=== PATIENT | male | born 1975 | race American Indian/Alaskan Native ===

== ENCOUNTER 2021-07-26 21:43 | Observation (INO) | payer OTHER ==
--- NOTE | 2021-07-26 22:01 | Emergency Department Report ---
HPI - General Chief Complaint: Overdose Time Seen by Provider: 07/26/21 21:52 - HPI HPI: Room 1 The patient is a 46-year-old male present with a chief complaint of heroin ingestion. The patient is brought in police custody for medical clearance after he reportedly ingested 47 bags of heroin at approximately 18: 00. The patient states that heroin was in plastic bags. Patient answers questions appropriately but seems slightly fatigued. ED Past Medical Hx - Past Medical History Previous Medical History?: No - Surgical History Past Surgical History?: No - Family History Family history: no significant - Social History Smoking Status: Current Every Day Smoker Substance Use Type: None ED Review of Systems ROS: Stated complaint: SWALLOWED HERION Other details as noted in HPI Constitutional: other (Sleepy) Eyes: denies: eye pain ENT: denies: throat pain Respiratory: no symptoms reported Cardiovascular: denies: chest pain Endocrine: no symptoms reported Gastrointestinal: denies: abdominal pain Genitourinary: denies: dysuria Musculoskeletal: denies: back pain Neurological: denies: headache Physical Exam - Physical Exam Vital Signs: Vital Signs 07/26/21 07/26/21 07/26/21 21:47 21:56 21:57 Temperature 98.4 F Pulse Rate 93 H Respiratory 18 Rate Blood Pressure 146/95 [Left] O2 Sat by Pulse 98 Oximetry Physical Exam: GENERAL: The patient is well-developed well-nourished male lying on stretcher appearing slightly fatigued but conscious and answering questions appropriately. [] HEENT: Normocephalic. Atraumatic. Extraocular motions are intact. Patient has moist mucous membranes. NECK: Supple. Trachea midline CHEST/LUNGS: Clear to auscultation. There is no respiratory distress noted. HEART/CARDIOVASCULAR: Regular. There is no tachycardia. There is no gallop rub or murmur. ABDOMEN: Abdomen is soft, nontender. Patient has normal bowel sounds. There is no abdominal distention. SKIN: There is no rash. There is no edema. There is no diaphoresis. NEURO: The patient is awake but seems slightly sleepy. The patient is awake and oriented. The patient is cooperative. The patient has no focal neurologic deficits. The patient has normal speech. GCS 15 MUSCULOSKELETAL: There is no evidence of acute injury. ED Course Vital Signs 07/26/21 07/26/21 07/26/21 21:47 21:56 21:57 Temperature 98.4 F Pulse Rate 93 H Respiratory 18 Rate Blood Pressure 146/95 [Left] O2 Sat by Pulse 98 Oximetry - Reevaluation(s) Reevaluation #1: 07/26/21 23:28 Patient groggy but answers questions after awakening to tactile stimuli. We will continue to observe Reevaluation #2: 07/27/21 00:05 Patient groggy but awakens to verbal stimuli only. Patient nods his head and says "yes" when asked if he is feeling okay. - Consultations Consultation #1: 07/26/21 22:01 Poison control called 07/26/21 22:15 Case discussed with Marii of poison control-recommends admitting the patient for 24 hours. Should give charcoal with sorbitol 1 g/kg as initial dose then 60 g of called charcoal and water every 4 to 6 hours for 24 hours. States the patient should pass at least 2 stools with charcoal before considering discharge. States that patient requires Narcan more than once the patient should be placed on a Narcan drip. States patient should be kept at least 6 hours after the last dose of Narcan if he remains asymptomatic. Patient should be admitted to the ICU ED Medical Decision Making - Lab Data Result diagrams: 07/26/21 23:06 07/26/21 23:06 - EKG Data -: EKG Interpreted by Me EKG shows normal: sinus rhythm Rate: normal - EKG Data When compared to previous EKG there are: previous EKG unavailable Interpretation: nonspecific ST-T wave licha - Radiology Data Radiology results: report reviewed (Abdominal x-ray 1 view), image reviewed (Abdominal x-ray 1 view) interpreted by me: Abdominal x-ray 1 view-no radiopaque foreign bodies visualized. Nonspecific bowel gas pattern [facility] [address] [place] [address] XRay Report Signed Patient: REECE AGUAYO MR#: [id number] : 1975 Acct:[id number] Age/Sex: 46 / M ADM Date: 07/26/21 Loc: ED Attending Dr: Ordering Physician: REMY OLMOS MD Date of Service: 07/26/21 Procedure(s): XR abdomen 1V ap Accession Number(s): [id number] cc: REMY OLMOS MD Fluoro Time In Minutes: . ABDOMEN 1 VIEW(S) INDICATION / CLINICAL INFORMATION: Reportedly ingested 47 bags of heroin. COMPARISON: None available. FINDINGS: T UBES / LINES: None. BOWEL GAS PATTERN: No dilated loops of bowel. No radiodense foreign bodies. There is mild constipation. FREE AIR / EXTRALUMINAL GAS: None seen. ADDITIONAL FINDINGS: No significant additional findings. IMPRESSION: 1. Constipation. Signer Name: Javi Garza MD Signed: 07/26/2021 10:37 PM Workstation Name: [id number] Transcribed By: XAVI Dictated By: Javi Garza MD Electronically Authenticated By: Javi Garza MD Signed Date/Time: 07/26/212236 DD/ 34 TD/TT: Print Cancel - Differential Diagnosis Possible heroin overdose Critical Care Time: Yes Critical care time in (mins) excluding proc time.: 30 Critical care attestation.: If time is entered above; I have spent that time in minutes in the direct care of this critically ill patient, excluding procedure time. ED Disposition Clinical Impression: Heroin overdose Disposition: 09 ADMITTED INPATIENT Is pt being admited?: Yes Does the pt Need Aspirin: No Condition: Serious Referrals: PRIMARY CARE, [Primary Care Provider] - 3-5 Days Time of Disposition: 00:06 (Hospitalist called (Dr Umana))
[2021-07-26] MEDS ORDERED: CHARCOAL/SORBITOL SOLUTION 25 GM/120 ML PO ONE (22:05)
[2021-07-26] MEDS ORDERED: ONDANSETRON 4 MG/2 ML INJ IV ONE (22:05)
--- NOTE | 2021-07-26 22:41 | XRay Report ---
. ABDOMEN 1 VIEW(S) INDICATION / CLINICAL INFORMATION: Reportedly ingested 47 bags of heroin. COMPARISON: None available. FINDINGS: TUBES / LINES: None. BOWEL GAS PATTERN: No dilated loops of bowel. No radiodense foreign bodies. There is mild constipatio n. FREE AIR / EXTRALUMINAL GAS: None seen. ADDITIONAL FINDINGS: No significant additional findings. IMPRESSION: 1. Constipation. Signer Name: Javi Garza MD Signed: 07/26/2021 10:37 PM Workstation Name: [email or web address]
[2021-07-26 23:23] LABS: Basophils # (Auto) 0.1 K/mm3 (0.0-0.1); Basophils % (Auto) 0.9 % (0.0-1.8); Eosinophils # (Auto) 0.1 K/mm3 (0.0-0.4); Eosinophils % (Auto) 0.8 % (0.0-4.3); Hematocrit 44.4 % (35.5-45.6); Hemoglobin 14.6 gm/dl (11.8-15.2); Lymphocytes # (Auto) 1.5 K/mm3 (1.2-5.4); Lymphocytes % (Auto) 19.9 % (13.4-35.0); Mean Corpuscular HGB Conc 33 % (32-34); Mean Corpuscular Volume 94 fl (84-94); Monocytes # (Auto) 0.5 K/mm3 (0.0-0.8); Monocytes % (Auto) 6.9 % (0.0-7.3); Platelet Count 263 K/mm3 (140-440); Red Blood Count 4.75 M/mm3 (3.65-5.03); Red Cell Distribution Width 14.2 % (13.2-15.2)
[2021-07-26 23:49] LABS: Alanine Aminotransferase 73 units/L (7-56); Albumin 4.8 g/dL (3.9-5); BUN/Creatinine Ratio 12; Blood Urea Nitrogen 16 mg/dL (9-20); Calcium 10.3 mg/dL (8.4-10.2); Hemolysis Index 31
[2021-07-27] MEDS ORDERED: MORPHINE 2 MG/1 ML INJ IV PRN ×2 (00:26)
[2021-07-27] MEDS ORDERED: MAGNESIUM HYDROXIDE (MOM) ORAL LIQD UDC PO PRN (00:26)
[2021-07-27] MEDS ORDERED: ACETAMINOPHEN 325 MG TAB PO PRN (00:26)
[2021-07-27] MEDS ORDERED: ONDANSETRON 4 MG/2 ML INJ IV PRN (00:26)
[2021-07-27] MEDS ORDERED: SODIUM CHLORIDE 0.9% 1000 ML 1,000 ML IV SCH (00:30)
--- NOTE | 2021-07-27 00:37 | History and Physical Report ---
History of Present Illness Date of examination: 07/27/21 Date of admission: 07/27/2021 Chief complaint: Heroin ingestion History of present illness: 46-year-old -Surinamese male with no significant past medical history brought into the emergency room today while in police custody having ingested about 47 bags of heroin. Patient denies any nausea vomiting, no abdominal pain, no headache or dizziness, no diaphoresis, no chest pain or shortness of breath. Poison control was consulted by the ER physician and recommendation was to have patient given activated charcoal every 4-6 hours and also to be observed in the intensive care unit. Work-up so far in the emergency room has been unremarkable. Past History Past Medical History: No medical history Past Surgical History: No surgical history Social history: smoking Family history: no significant family history Medications and Allergies Allergies Allergy/AdvReac Type Severity Reaction Status Date / Time No Known Allergies Allergy Unverified 07/26/21 22:04 Active Meds: Active Medications Acetaminophen (Acetaminophen 325 Mg Tab) 650 mg PO Q6H PRN PRN Reason: Pain MILD(1-3)/Fever >100.5/CHARLES Heparin Sodium (Porcine) (Heparin 5,000 Unit/1 Ml Vial) 5,000 unit SUB-Q Q8HR KRUNAL Sodium Chloride (Nacl 0.9% 1000 Ml) 1,000 mls @ 75 mls/hr IV DIRECT KRUNAL Magnesium Hydroxide (Magnesium Hydroxide (Mom) Oral Liqd Udc) 30 ml PO Q4H PRN PRN Reason: Constipation Morphine Sulfate (Morphine 2 Mg/1 Ml Inj) 2 mg IV Q4H PRN PRN Reason: Pain, Moderate (4-6) Morphine Sulfate (Morphine 4 Mg/1 Ml Inj) 4 mg IV Q4H PRN PRN Reason: Pain , Severe (7-10) Ondansetron HCl (Ondansetron 4 Mg/2 Ml Inj) 4 mg IV Q8H PRN PRN Reason: Nausea And Vomiting Sodium Chloride (Sodium Chloride 0.9% 10 Ml Flush Syringe) 10 ml IV BID KRUNAL Sodium Chloride (Sodium Chloride 0.9% 10 Ml Flush Syringe) 10 ml IV PRN PRN PRN Reason: LINE FLUSH Review of Systems Constitutional: no fever, no chills Ears, nose, mouth and throat: no nasal congestion, no sore throat Cardiovascular: no chest pain, no palpitations Respiratory: no cough, no shortness of breath Gastrointestinal: no abdominal pain, no nausea, no vomiting, no diarrhea, no hematemesis, no melena Genitourinary Male: no dysuria, no hematuria, no flank pain, no nocturia Musculoskeletal: no neck pain, no low back pain Integumentary: no rash, no pruritis Neurological: no headaches, no confusion Psychiatric: no anxiety, no depression Endocrine: no polyphagia, no polydipsia, no polyuria, no nocturia Exam - Constitutional Vitals: Temp Pulse Resp BP Pulse Ox 98.4 F 96 H 19 142/102 100 07/26/21 21:57 07/26/21 23:16 07/26/21 23:16 07/26/21 23:16 07/26/21 23:16 General appearance: Present: no acute distress, well-nourished - EENT Eyes: Present: PERRL, EOM intact. Absent: scleral icterus ENT: hearing intact, clear oral mucosa, dentition normal - Neck Neck: Present: supple, normal ROM - Respiratory Respiratory effort: normal Respiratory: bilateral: CTA - Cardiovascular Rhythm: regular Heart Sounds: Present: S1 & S2. Absent: gallop, systolic murmur, diastolic murmur, rub, click - Extremities Extremities: no ischemia, pulses intact, pulses symmetrical, No edema, normal temperature, normal color, Full ROM Peripheral Pulses: within normal limits - Abdominal General gastrointestinal: Present: soft, non-tender, non-distended, normal bowel sounds. Absent: mass - Integumentary Integumentary: Present: clear, warm, dry. Absent: rash - Musculoskeletal Musculoskeletal: strength equal bilaterally - Psychiatric Psychiatric: appropriate mood/affect, intact judgment & insight, memory intact, cooperative - Neurologic Neurologic: CNII-XII intact, no focal deficits, moves all extremities HEART Score - HEART Score Troponin: Troponin T < 0.010 ng/mL (0.00-0.029) 07/26/21 23:06 Results - Labs CBC & Chem 7: 07/26/21 23:06 07/26/21 23:06 Labs: Abnormal lab results 07/26/21 07/26/21 07/26/21 Range/Units 23:06 23:06 23:06 Seg Neutrophils % 71.5 H (40.0-70.0) % Calcium 10.3 H (8.4-10.2) mg/dL AST 69 H (5-40) units/L ALT 73 H (7-56) units/L Total Creatine Kinase 927 H (55-170) units/L CK-MB (CK-2) 8.0 H (0.0-4.0) ng/mL Salicylates < 0.3 L (2.8-20.0) mg/dL Acetaminophen (10.0-30.0) ug/mL 07/26/21 Range/Units 23:06 Seg Neutrophils % (40.0-70.0) % Calcium (8.4-10.2) mg/dL AST (5-40) units/L ALT (7-56) units/L Total Creatine Kinase (55-170) units/L CK-MB (CK-2) (0.0-4.0) ng/mL Salicylates (2.8-20.0) mg/dL Acetaminophen 5.0 L (10.0-30.0) ug/mL Assessment and Plan - Patient Problems (1) Heroin overdose Current Visit: Yes Status: Acute Plan to address problem: Patient will be closely observed in the intensive care unit. Will be given activated charcoal as recommended by poison control. Will monitor vital signs closely. (2) DVT prophylaxis Current Visit: Yes Status: Acute Plan to address problem: Patient placed on subcutaneous heparin. (3) Full code status Current Visit: Yes Status: Acute Plan to address problem: Patient is full code.
[2021-07-27] MEDS ORDERED: charcoal activated SOLUTION 25 GM/120 ML PO SCH (05:00)
[2021-07-27] MEDS: HEPARIN 5,000 UNIT/1 ML VIAL SUB-Q SCH ×2 (06:12→15:33)
[2021-07-27] MEDS: charcoal activated SOLUTION 25 GM/120 ML PO SCH ×2 (06:24→15:33)
--- NOTE | 2021-07-27 12:16 | Progress Note ---
Assessment and Plan Assessment and plan: -- foreign body ingestion; Patient ingested 47 packets of heroin [per patient] Current Visit: Yes Status: Acute Poison control recommended charcoal treatment patient will be closely observed in IMCU Continue activated charcoal as recommended by poison control. Watch for bowel movements Continue supportive care --Ongoing tobacco use; Current Visit: Yes Status: Acute Smoking cessation counseling, advised nicotine patch as needed --DVT prophylaxis Current Visit: Yes Status: Acute Patient placed on subcutaneous heparin. --Full code status Current Visit: Yes Status: Acute Plan to address problem: Patient is full code. We will closely monitor the patient and adjust management as needed Plan of care reviewed with the patient and his nurse History Interval history: I have seen and examined the patient at the bedside in ER awaiting room assignment Patient is sleeping but easily awakens No new complaints Hospitalist Physical - Constitutional Vitals: Temp Pulse Resp BP Pulse Ox 98 F 75 18 142/89 100 07/27/21 10:26 07/27/21 11:00 07/27/21 11:00 07/27/21 10:07/27/21 11:00 General appearance: Present: no acute distress, well-nourished - EENT Eyes: Present: PERRL, EOM intact - Neck Neck: Present: supple, normal ROM - Respiratory Respiratory effort: normal Respiratory: bilateral: diminished, negative: rales, rhonchi, wheezing - Cardiovascular Rhythm: regular Heart Sounds: Present: S1 & S2 - Extremities Extremities: no ischemia, No edema - Abdominal General gastrointestinal: soft, non-tender, non-distended, normal bowel sounds - Integumentary Integumentary: Present: clear, warm - Psychiatric Psychiatric: appropriate mood/affect, cooperative, no agitated, other - Neurologic Neurologic: moves all extremities, other (Sleeping easily awakens) HEART Score - HEART Score Troponin: Troponin T < 0.010 ng/mL (0.00-0.029) 07/26/21 23:06 Results - Labs CBC & Chem 7: 07/26/21 23:06 07/26/21 23:06 Labs: Laboratory Last Values WBC 7.8 K/mm3 (4.5-11.0) 07/26/21 23:06 RBC 4.75 M/mm3 (3.65-5.03) 07/26/21 23:06 Hgb 14.6 gm/dl (11.8-15.2) 07/26/21 23:06 Hct 44.4 % (35.5-45.6) 07/26/21 23:06 MCV 94 fl (84-94) 07/26/21 23:06 MCH 31 pg (28-32) 07/26/21 23:06 MCHC 33 % (32-34) 07/26/21 23:06 RDW 14.2 % (13.2-15.2) 07/26/21 23:06 Plt Count 263 K/mm3 (140-440) 07/26/21 23:06 Lymph % (Auto) 19.9 % (13.4-35.0) 07/26/21 23:06 [place] % (Auto) 6.9 % (0.0-7.3) 07/26/21 23:06 Eos % (Auto) 0.8 % (0.0-4.3) 07/26/21 23:06 Baso % (Auto) 0.9 % (0.0-1.8) 07/26/21 23:06 Lymph # (Auto) 1.5 K/mm3 (1.2-5.4) 07/26/21 23:06 [place] # (Auto) 0.5 K/mm3 (0.0-0.8) 07/26/21 23:06 Eos # (Auto) 0.1 K/mm3 (0.0-0.4) 07/26/21 23:06 Baso # (Auto) 0.1 K/mm3 (0.0-0.1) 07/26/21 23:06 Seg Neutrophils % 71.5 % (40.0-70.0) H 07/26/21 23:06 Seg Neutrophils # 5.5 K/mm3 (1.8-7.7) 07/26/21 23:06 Sodium 140 mmol/L (137-145) 07/26/21 23:06 Potassium 3.9 mmol/L (3.6-5.0) 07/26/21 23:06 Chloride 99.4 mmol/L (98-107) 07/26/21 23:06 Carbon Dioxide 27 mmol/L (22-30) 07/26/21 23:06 Anion Gap 18 mmol/L 07/26/21 23:06 BUN 16 mg/dL (9-20) 07/26/21 23:06 Creatinine 1.3 mg/dL (0.8-1.3) 07/26/21 23:06 Estimated GFR > 60 ml/min 07/26/21 23:06 BUN/Creatinine Ratio 12 % 07/26/21 23:06 Glucose 86 mg/dL (75-100) 07/26/21 23:06 Calcium 10.3 mg/dL (8.4-10.2) H 07/26/21 23:06 Total Bilirubin 0.80 mg/dL (0.1-1.2) 07/26/21 23:06 AST 69 units/L (5-40) H 07/26/21 23:06 ALT 73 units/L (7-56) H 07/26/21 23:06 Alkaline Phosphatase 55 units/L (35-129) 07/26/21 23:06 Total Creatine Kinase 927 units/L (55-170) H 07/26/21 23:06 CK-MB (CK-2) 8.0 ng/mL (0.0-4.0) H 07/26/21 23:06 CK-MB (CK-2) Rel Index 0.8 (0-4) 07/26/21 23:06 Troponin T < 0.010 ng/mL (0.00-0.029) 07/26/21 23:06 Total Protein 7.3 g/dL (6.3-8.2) 07/26/21 23:06 Albumin 4.8 g/dL (3.9-5) 07/26/21 23:06 Albumin/Globulin Ratio 1.9 % 07/26/21 23:06 Salicylates < 0.3 mg/dL (2.8-20.0) L 07/26/21 23:06 Acetaminophen 5.0 ug/mL (10.0-30.0) L 07/26/21 23:06 Plasma/Serum Alcohol < 0.01 % (0-0.07) 07/26/21 23:06 Anderson/IV: Voiding Method Bedside Commode Active Medications - Current Medications Current Medications: Generic Name Dose Route Start Last Admin Trade Name Freq PRN Reason Stop Dose Admin Acetaminophen 650 mg 07/27/21 00:26 Acetaminophen 325 Mg Tab PO Q6H PRN Pain MILD(1-3)/Fever >100.5/CHARLES Charcoal 60 gm 07/27/21 04:10 07/27/21 06:24 Charcoal Activated Solution 25 Gm/120 Ml PO 60 gm Q6H KRUNAL Administration Heparin Sodium (Porcine) 5,000 unit 07/27/21 06:00 07/27/21 06:12 Heparin 5,000 Unit/1 Ml Vial SUB-Q 5,000 unit Q8HR KRUNAL Administration Sodium Chloride 1,000 mls @ 75 mls/hr 07/27/21 00:30 07/27/21 01:24 Nacl 0.9% 1000 Ml IV 75 mls/hr DIRECT KRUNAL Administration Magnesium Hydroxide 30 ml 07/27/21 00:26 Magnesium Hydroxide (Mom) Oral Liqd Udc PO Q4H PRN Constipation Morphine Sulfate 2 mg 07/27/21 00:26 Morphine 2 Mg/1 Ml Inj IV Q4H PRN Pain, Moderate (4-6) Morphine Sulfate 4 mg 07/27/21 00:26 Morphine 2 Mg/1 Ml Inj IV Q4H PRN Pain , Severe (7-10) Ondansetron HCl 4 mg 07/27/21 00:26 Ondansetron 4 Mg/2 Ml Inj IV Q8H PRN Nausea And Vomiting Sodium Chloride 10 ml 07/27/21 10:00 Sodium Chloride 0.9% 10 Ml Flush Syringe IV BID KRUNAL Sodium Chloride 10 ml 07/27/21 00:26 Sodium Chloride 0.9% 10 Ml Flush Syringe IV PRN PRN LINE FLUSH
--- NOTE | 2021-07-27 15:01 | Consultation ---
History of Present Illness Consult date: 07/27/21 Requesting physician: RONI EARL Reason for consult: other (Drug Ingestion ? OD) History of present illness: PULMONARY/CCM CONSULT NOTE (Full dictation # ) Please see dictated notes for full details Past History Past Medical History: No medical history Past Surgical History: No surgical history Social history: smoking Family history: no significant family history Medications and Allergies Allergies Allergy/AdvReac Type Severity Reaction Status Date / Time No Known Allergies Allergy Verified 07/27/21 00:33 Home Medications Medication Instructions Recorded Confirmed Last Taken Type No Known Home Medications [No 07/27/21 07/27/21 Unknown History Reported Home Medications] Active Meds: Active Medications Acetaminophen (Acetaminophen 325 Mg Tab) 650 mg PO Q6H PRN PRN Reason: Pain MILD(1-3)/Fever >100.5/CHARLES Charcoal (Charcoal Activated Solution 25 Gm/120 Ml) 60 gm PO Q6H KRUNAL Last Admin: 07/27/21 06:24 Dose: 60 gm Documented by: Heparin Sodium (Porcine) (Heparin 5,000 Unit/1 Ml Vial) 5,000 unit SUB-Q Q8HR KRUNAL Last Admin: 07/27/21 06:12 Dose: 5,000 unit Documented by: Sodium Chloride (Nacl 0.9% 1000 Ml) 1,000 mls @ 75 mls/hr IV DIRECT KRUNAL Last Admin: 07/27/21 01:24 Dose: 75 mls/hr Documented by: Magnesium Hydroxide (Magnesium Hydroxide (Mom) Oral Liqd Udc) 30 ml PO Q4H PRN PRN Reason: Constipation Morphine Sulfate (Morphine 2 Mg/1 Ml Inj) 2 mg IV Q4H PRN PRN Reason: Pain, Moderate (4-6) Morphine Sulfate (Morphine 2 Mg/1 Ml Inj) 4 mg IV Q4H PRN PRN Reason: Pain , Severe (7-10) Ondansetron HCl (Ondansetron 4 Mg/2 Ml Inj) 4 mg IV Q8H PRN PRN Reason: Nausea And Vomiting Sodium Chloride (Sodium Chloride 0.9% 10 Ml Flush Syringe) 10 ml IV BID KURNAL Sodium Chloride (Sodium Chloride 0.9% 10 Ml Flush Syringe) 10 ml IV PRN PRN PRN Reason: LINE FLUSH Physical Examination Vital signs: Vital Signs BP 146/95 07/26/21 21:47 Results - Laboratory Findings CBC and BMP: 07/26/21 23:06 07/26/21 23:06 Abnormal lab findings: Abnormal Labs 07/26/21 07/26/21 07/26/21 23:06 23:06 23:06 Seg Neutrophils % 71.5 H Calcium 10.3 H AST 69 H ALT 73 H Total Creatine Kinase 927 H CK-MB (CK-2) 8.0 H Salicylates < 0.3 L Acetaminophen 07/26/21 23:06 Seg Neutrophils % Calcium AST ALT Total Creatine Kinase CK-MB (CK-2) Salicylates Acetaminophen 5.0 L
[2021-07-27 16:18] LABS: Amphetamine Screen,Urine PRESUMPTIVE POSITIVE; Benzodiazepines Screen,Urine PRESUMPTIVE POSITIVE; Cannabinoid Screen,Urine PRESUMPTIVE POSITIVE
[2021-07-27 16:28] LABS: Bilirubin,Urine NEG (Negative); Blood,Urine NEG (Negative); Color,Urine Yellow (Yellow); Mucus,Urine 2+ /HPF; Urobilinogen,Urine < 2.0 mg/dL (<2.0); WBC,Urine < 1.0 /HPF (0.0-6.0)
[2021-07-27 16:36] LABS: Cocaine Screen,Urine PRESUMPTIVE NEGATIVE; Methadone Screen,Urine PRESUMPTIVE NEGATIVE; Opiate Screen,Urine PRESUMPTIVE NEGATIVE
--- NOTE | 2021-07-27 18:17 | Cat Scan Report ---
CT ABDOMEN AND PELVIS WITHOUT CONTRAST INDICATION / CLINICAL INFORMATION: To see if anything foreign is in patients abdomen. Suspect the pos sibility of ingested bag of heroin TECHNIQUE: Axial CT images were obtained through the abdomen and pelvis without IV contrast. All CT scans at this location are performed using CT dose reduction for ALARA by means of automated exposure control. COMPARISON: None available. FINDINGS: LOWER CHEST: No significant abnormality. LIVER: There is a small hypodensity in the inferior right lobe characteristic of a small cyst. There is some focal fatty infiltration adjacent to the falciform ligament. GALLBLADDER: No significant abnormality. BILE DUCTS: No significant abnormality. PANCREAS: No significant abnormality. SPLEEN: No significant abnormality. ADRENALS: No significant abnormality. RIGHT KIDNEY / URETER: No significant abnormality. LEFT KIDNEY / URETER: No significant abnormality. STOMACH / SMALL BOWEL: There is no obstruction or free air. There are no abnormal fluid collections. No radiopaque foreign bodies are identified. COLON: No radiopaque foreign bodies are identified. APPENDIX: No significant abnormality. PERITONEUM: No free fluid. No free air. No fluid collection. LYMPH NODES: No significant adenopathy. AORTA / ARTERIES: No significant abnormality. IVC / VEINS: No significant abnormality. URINARY BLADDER: No significant abnormality. REPRODUCTIVE ORGANS: No significant abnormality. ADDITIONAL FINDINGS: None. SKELETAL SYSTEM: No acute abnormality IMPRESSION: 1. There is no obstruction, inflammation, or free air. There are no abnormal fluid collections. No ra diopaque foreign bodies are seen. Signer Name: Jem Rockwell MD Signed: 07/27/2021 6:13 PM Workstation Name: [id number]
--- NOTE | 2021-07-27 18:22 | Event Note ---
Date: 07/27/[address] abdomen and pelvis without contrast as recommended by poison control. I reviewed the CT films, no obvious foreign body noted, patient is alert awake oriented Received charcoal and had bowel movements, I called and spoke to poison control at [phone] and discuss the findings of the CT abdomen and pelvis As well as patient's overall general condition, advised to stop charcoal administration. And cleared after 24 hours that is around 10 PM today. Patient's urine drug screen positive for Amphetamines, benzodiazepine and mariju gabriel Patient was strongly counseled to quit recreational drug use And seek drug rehabilitation as needed. Plan of care reviewed with the patient's nurse.
[2021-07-28] MEDS: HEPARIN 5,000 UNIT/1 ML VIAL SUB-Q SCH (03:17)
[2021-07-28 06:12] VITALS: BP 99/54
[2021-07-28 06:36] LABS: Basophils % (Auto) 0.8 % (0.0-1.8); Eosinophils # (Auto) 0.1 K/mm3 (0.0-0.4); Hematocrit 45.1 % (35.5-45.6); Hemoglobin 14.8 gm/dl (11.8-15.2); Lymphocytes # (Auto) 1.7 K/mm3 (1.2-5.4); Lymphocytes % (Auto) 30.5 % (13.4-35.0); Mean Corpuscular HGB Conc 33 % (32-34); Mean Corpuscular Volume 93 fl (84-94); Monocytes # (Auto) 0.5 K/mm3 (0.0-0.8); Monocytes % (Auto) 8.7 % (0.0-7.3); Platelet Count 267 K/mm3 (140-440); Red Blood Count 4.83 M/mm3 (3.65-5.03); Red Cell Distribution Width 14.3 % (13.2-15.2)
[2021-07-28 06:47] LABS: INR 0.88 (0.87-1.13)
[2021-07-28 07:01] LABS: BUN/Creatinine Ratio 11; Blood Urea Nitrogen 11 mg/dL (9-20); Hemolysis Index 7
--- NOTE | 2021-07-28 09:24 | Progress Note ---
Assessment and Plan Assessment and plan: -- foreign body ingestion; Patient reports that he ingested 47 packets of heroin Current Visit: Yes Status: Acute Poison control recommended charcoal treatment patient will be closely observed in IMCU. X-ray abdomen; 07/26/2021 did not show any radiopaque foreign body, constipation CT abdomen and pelvis without contrast; 07/27/2021 No obstruction no inflammation or free air there are no abnormal fluid collections. No radiopaque foreign bodies seen Received activated charcoal as recommended by poison control. Discontinued charcoal therapy after CT abdomen last night per poison control Continue supportive care --Ongoing tobacco use; Current Visit: Yes Status: Acute Smoking cessation counseling, advised nicotine patch as needed --DVT prophylaxis Current Visit: Yes Status: Acute Patient placed on subcutaneous heparin. --Full code status Current Visit: Yes Status: Acute Plan to address problem: Patient is full code. We will closely monitor the patient and adjust management as needed Plan of care reviewed with the patient and his nurse Hospitalist Physical - Constitutional Vitals: Temp Pulse Resp BP Pulse Ox 98.5 F 70 20 99/54 100 07/28/21 07:28 07/28/21 07:00 07/28/21 07:00 07/28/21 06:10 07/28/21 07:00 General appearance: Present: no acute distress, well-nourished HEART Score - HEART Score Troponin: Troponin T < 0.010 ng/mL (0.00-0.029) 07/26/21 23:06 Results - Labs CBC & Chem 7: 07/28/21 06:17 07/28/21 06:17 Labs: Laboratory Last Values WBC 5.5 K/mm3 (4.5-11.0) 07/28/21 06:17 RBC 4.83 M/mm3 (3.65-5.03) 07/28/21 06:17 Hgb 14.8 gm/dl (11.8-15.2) 07/28/21 06:17 Hct 45.1 % (35.5-45.6) 07/28/21 06:17 MCV 93 fl (84-94) 07/28/21 06:17 MCH 31 pg (28-32) 07/28/21 06:17 MCHC 33 % (32-34) 07/28/21 06:17 RDW 14.3 % (13.2-15.2) 07/28/21 06:17 Plt Count 267 K/mm3 (140-440) 07/28/21 06:17 Lymph % (Auto) 30.5 % (13.4-35.0) 07/28/21 06:17 [place] % (Auto) 8.7 % (0.0-7.3) H 07/28/21 06:17 Eos % (Auto) 2.0 % (0.0-4.3) 07/28/21 06:17 Baso % (Auto) 0.8 % (0.0-1.8) 07/28/21 06:17 Lymph # (Auto) 1.7 K/mm3 (1.2-5.4) 07/28/21 06:17 [place] # (Auto) 0.5 K/mm3 (0.0-0.8) 07/28/21 06:17 Eos # (Auto) 0.1 K/mm3 (0.0-0.4) 07/28/21 06:17 Baso # (Auto) 0.0 K/mm3 (0.0-0.1) 07/28/21 06:17 Seg Neutrophils % 58.0 % (40.0-70.0) 07/28/21 06:17 Seg Neutrophils # 3.2 K/mm3 (1.8-7.7) 07/28/21 06:17 PT 13.0 Sec. (12.2-14.9) 07/28/21 06:17 INR 0.88 (0.87-1.13) 07/28/21 06:17 Sodium 141 mmol/L (137-145) 07/28/21 06:17 Potassium 3.7 mmol/L (3.6-5.0) 07/28/21 06:17 Chloride 105.9 mmol/L (98-107) 07/28/21 06:17 Carbon Dioxide 24 mmol/L (22-30) 07/28/21 06:17 Anion Gap 15 mmol/L 07/28/21 06:17 BUN 11 mg/dL (9-20) 07/28/21 06:17 Creatinine 1.0 mg/dL (0.8-1.3) 07/28/21 06:17 Estimated GFR > 60 ml/min 07/28/21 06:17 BUN/Creatinine Ratio 11 % 07/28/21 06:17 Glucose 93 mg/dL (75-100) 07/28/21 06:17 Calcium 9.0 mg/dL (8.4-10.2) 07/28/21 06:17 Total Bilirubin 0.80 mg/dL (0.1-1.2) 07/26/21 23:06 AST 69 units/L (5-40) H 07/26/21 23:06 ALT 73 units/L (7-56) H 07/26/21 23:06 Alkaline Phosphatase 55 units/L (35-129) 07/26/21 23:06 Total Creatine Kinase 927 units/L (55-170) H 07/26/21 23:06 CK-MB (CK-2) 8.0 ng/mL (0.0-4.0) H 07/26/21 23:06 CK-MB (CK-2) Rel Index 0.8 (0-4) 07/26/21 23:06 Troponin T < 0.010 ng/mL (0.00-0.029) 07/26/21 23:06 Total Protein 7.3 g/dL (6.3-8.2) 07/26/21 23:06 Albumin 4.8 g/dL (3.9-5) 07/26/21 23:06 Albumin/Globulin Ratio 1.9 % 07/26/21 23:06 Urine Color Yellow (Yellow) 07/26/21 Unknown Urine Turbidity Clear (Clear) 07/26/21 Unknown Urine pH 5.0 (5.0-7.0) 07/26/21 Unknown Ur Specific Slaughter 1.032 (1.003-1.030) H 07/26/21 Unknown Urine Protein 30 mg/dl mg/dL (Negative) 07/26/21 Unknown Urine Glucose (UA) Neg mg/dL (Negative) 07/26/21 Unknown Urine Ketones Neg mg/dL (Negative) 07/26/21 Unknown Urine Blood Neg (Negative) 07/26/21 Unknown Urine Nitrite Neg (Negative) 07/26/21 Unknown Urine Bilirubin Neg (Negative) 07/26/21 Unknown Urine Urobilinogen < 2.0 mg/dL (<2.0) 07/26/21 Unknown Ur Leukocyte Esterase Neg (Negative) 07/26/21 Unknown Urine WBC (Auto) < 1.0 /HPF (0.0-6.0) 07/26/21 Unknown Urine RBC (Auto) 2.0 /HPF (0.0-6.0) 07/26/21 Unknown Urine Mucus 2+ /HPF 07/26/21 Unknown Salicylates < 0.3 mg/dL (2.8-20.0) L 07/26/21 23:06 Urine Opiates Screen Presumptive negative 07/27/21 12:21 Urine Methadone Screen Presumptive negative 07/27/21 12:21 Acetaminophen 5.0 ug/mL (10.0-30.0) L 07/26/21 23:06 Ur Barbiturates Screen Presumptive negative 07/27/21 12:21 Ur Phencyclidine Scrn Presumptive negative 07/27/21 12:21 Ur Amphetamines Screen Presumptive positive 07/27/21 12:21 U Benzodiazepines Scrn Presumptive positive 07/27/21 12:21 Urine Cocaine Screen Presumptive negative 07/27/21 12:21 U Marijuana (THC) Screen Presumptive positive 07/27/21 12:21 Drugs of Abuse Note Disclamer 07/27/21 12:21 Plasma/Serum Alcohol < 0.01 % (0-0.07) 07/26/21 23:06 Coronavirus (PCR) Negative (Negative) 07/27/21 Unknown Anderson/IV: Voiding Method Toilet Active Medications - Current Medications Current Medications: Generic Name Dose Route Start Last Admin Trade Name Freq PRN Reason Stop Dose Admin Acetaminophen 650 mg 07/27/21 00:26 Acetaminophen 325 Mg Tab PO Q6H PRN Pain MILD(1-3)/Fever >100.5/CHARLES Heparin Sodium (Porcine) 5,000 unit 07/27/21 06:00 07/28/21 03:17 Heparin 5,000 Unit/1 Ml Vial SUB-Q Not Given Q8HR KRUNAL Sodium Chloride 1,000 mls @ 75 mls/hr 07/27/21 00:30 07/27/21 01:24 Nacl 0.9% 1000 Ml IV 75 mls/hr DIRECT KRUNAL Administration Magnesium Hydroxide 30 ml 07/27/21 00:26 Magnesium Hydroxide (Mom) Oral Liqd Udc PO Q4H PRN Constipation Morphine Sulfate 2 mg 07/27/21 00:26 Morphine 2 Mg/1 Ml Inj IV Q4H PRN Pain, Moderate (4-6) Morphine Sulfate 4 mg 10/30/21 00:26 Morphine 2 Mg/1 Ml Inj IV Q4H PRN Pain , Severe (7-10) Ondansetron HCl 4 mg 07/27/21 00:26 Ondansetron 4 Mg/2 Ml Inj IV Q8H PRN Nausea And Vomiting Sodium Chloride 10 ml 07/27/21 10:00 07/28/21 03:18 Sodium Chloride 0.9% 10 Ml Flush Syringe IV 10 ml BID KRUNAL Administration Sodium Chloride 10 ml 07/27/21 00:26 Sodium Chloride 0.9% 10 Ml Flush Syringe IV PRN PRN LINE FLUSH
--- NOTE | 2021-07-28 10:32 | Discharge Summary ---
Providers - Providers Date of Admission: 07/27/21 02:22 Date of discharge: 07/28/21 Attending physician: ARIE CUTLER 07/27/21 00:27 Consult to Physician [CONS] Routine Comment: Dr. Henry spoke with Dr. 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 No radiopaque foreign bodies seen Hospital course: 46-year-old -[place] male with no significant past medical history brought into the emergency room today while in police custody having ingested about 47 bags of heroin. Patient denies any nausea vomiting, no abdominal pain, no headache or dizziness, no diaphoresis, no chest pain or shortness of breath. Poison control was consulted by the ER physician and recommendation was to have patient given activated charcoal every 4-6 hours and also to be observed in the intensive care unit. Work-up so far in the emergency room has been unremarkable. Poison control closely monitored and advised periodically, recommendations followed X-ray abdomen did not show any radiopaque foreign body material, showed constipation which was resolved after receiving charcoal recommended by poison control We also obtained CT abdomen and pelvis without contrast on 07/27/2021, did not reveal any radiopaque foreign bodies/objects, no obstruction, no inflammation, no free air in the abdomen, no abnormal fluid collections. Patient's urine drug screen is positive for Amphetamines and benzodiazepine. Patient symptoms resolved Today patient is comfortably no new complaints alert awake oriented x3 Tolerating oral nutrition, had good bowel movements constipation resolved No foreign bodies noted in the stool Vital signs stable, hemodynamically and clinically stable at discharge Plan of care discussed with the patient, his nurse as well as the intelligence support officer at the bedside. Stable at discharge Discharge diagnosis: -- foreign body ingestion; Patient reports that he ingested 47 packets of heroin Current Visit: Yes Status: Acute Poison control recommended charcoal treatment, closely observed in IMCU X-ray abdomen; 07/26/2021 did not show any radiopaque foreign body, constipation CT abdomen and pelvis without contrast; 07/27/2021 No obstruction no inflammation or free air there are no abnormal fluid collections. No radiopaque foreign bodies seen Received activated charcoal as recommended by poison control. Discontinued charcoal therapy after CT abdomen last night per poison control Continue supportive care --Recreational drug use; Advised to quit amphetamine and benzodiazepine use --Ongoing tobacco use; Current Visit: Yes Status: Acute Smoking cessation counseling, advised nicotine patch as needed Cleared by poison control, hemodynamically and clinically stable at discharge Disposition: 21 [address]/LAW ENFORCEMENT Final Discharge Diagnosis (Prints w/discharge instructions): Foreign body ingestion[patient report he ingested 47 packets of heroine]. Chest x-ray, CT abdomen did not show any radiopaque foreign bodies. Ongoing tobacco use/smoking cessation advised. Recreational drug use/advised to quit. Gastritis Time spent for discharge: 35 min Core Measure Documentation - Palliative Care Palliative Care/ Comfort Measures: Not Applicable - Core Measures Any of the following diagnoses?: none Exam - Constitutional Vitals: Temp Pulse Resp BP Pulse Ox 98.5 F 70 20 99/54 100 07/28/21 07:28 07/28/21 07:00 07/28/21 07:00 07/28/21 06:10 07/28/21 07:00 General appearance: Present: no acute distress, well-nourished - EENT Eyes: Present: PERRL, EOM intact - Neck Neck: Present: supple, normal ROM - Respiratory Respiratory effort: normal Respiratory: bilateral: diminished, negative: rales, rhonchi, wheezing - Cardiovascular Rhythm: regular Heart Sounds: Present: S1 & S2 - Extremities Extremities: no ischemia, No edema - Abdominal General gastrointestinal: Present: soft, non-tender, non-distended, normal bowel sounds - Integumentary Integumentary: Present: clear, warm - Musculoskeletal Musculoskeletal: strength equal bilaterally - Psychiatric Psychiatric: appropriate mood/affect, cooperative - Neurologic Neurologic: moves all extremities Plan Activity: no restrictions Diet: regular Special Instructions: smoking cessation Additional Instructions: Advised to quit recreational drug use. Smoking cessation counseling Follow up with: PRIMARY CARE, [Primary Care Provider] - 3-5 Days Prescriptions: Famotidine [Pepcid] 20 mg PO BID #20 tablet Ondansetron HCl [Zofran] 4 mg PO TID PRN #15 tablet PRN Reason: Nausea And Vomiting
--- NOTE | 2021-07-30 18:41 | Electrocardiograph Report ---
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
== END 2021-07-28 12:43 ==
LOC: ED 21:43 → EEVIPCON 21:43 → CC1 07-27 02:22 → IMCU 07-27 11:06
PROVIDERS: ADMIT Internal Medicine Geriatric Medicine; ATTEND Internal Medicine
DX: T40.1X1A Poisoning by heroin, accidental (unintentional), initial encounter (principal); Z20.822 Contact with and (suspected) exposure to COVID-19; F17.210 Nicotine dependence, cigarettes, uncomplicated; Z79.899 Other long term (current) drug therapy
CPT/HCPCS: 36415; 74018; 74176; 80048; 80053; 80307; 81001; 82550; 82553; 84484; 85025; 85610; 93005; 96372; 96374; 99291; G0378; J1644; J2405; J7030; U0003; 80320; G0480